=== PATIENT | female | born 1950 | race Caucasian/White ===

== ENCOUNTER 2023-09-14 11:50 | Emergency (ER) | payer OTHER, MEDICARE ==
[~2023-09-14] VITALS: Ht 160 cm; Wt 48.1 kg
[2023-09-14] MEDS ORDERED: LORAZEPAM 2 MG/1 ML VIAL ONE (12:25)
[2023-09-14] MEDS ORDERED: LORAZEPAM 2 MG/1 ML VIAL IV ONE (12:30)
[2023-09-14] MEDS ORDERED: IV NORMAL SALINE 500 ML BAG IV ONE (12:30)
[2023-09-14 12:35] LABS: BASOPHILS % (AUTO) 0.3 % (0.0-2.0); EOSINOPHILS % (AUTO) 0.1 % (0.0-7.0); HEMOGLOBIN 13.3 g/dL (10.9-14.3); LYMPHOCYTES # (AUTO) 1.5 K/uL (0.8-4.8); MEAN CORPUSCULAR HEMOGLOBIN 30.9 uug (24.7-32.8); MEAN CORPUSCULAR HGB CONC 33 g/dL (32.3-35.6); MEAN CORPUSCULAR VOLUME 93.5 fL (75.5-95.3); MONOCYTES # (AUTO) 0.5 K/uL (0.1-1.30); MONOCYTES % (AUTO) 5.9 % (0.0-11.0); NEUTROPHILS % (AUTO) 74.7 % (38.5-71.5); PLATELET COUNT (AUTO) 251 K/uL (179-408); RED BLOOD CELL COUNT(AUTO) 4.28 MIL/uL (3.63-4.92); RED CELL DISTRIBUTION WIDTH 13.4 % (12.3-17.7)
[2023-09-14 12:36] LABS: DIFFERENTIAL COMMENT 1
[2023-09-14 12:47] LABS: CALCIUM 9.1 mg/dL (8.5-10.1); CREATININE 0.8 mg/dL (0.6-1.3); POTASSIUM 3.5 mmol/L (3.5-5.1)
[2023-09-14] MEDS ORDERED: ACETYLCYSTEINE 20% 800 MG/4 ML VIAL NEB ONE (15:15)
[2023-09-14] MEDS ORDERED: ACETYLCYSTEINE 20% 800 MG/4 ML VIAL ONE (15:19)
[2023-09-14 15:25] VITALS: O2SAT 98
[2023-09-14] MEDS ORDERED: ALBUTEROL SULFATE 1.25 MG/3 ML NEBU ONE (15:26)
[2023-09-14] MEDS ORDERED: DEXAMETHASONE SOD PHOSPHATE 4 MG INJ ONE (15:29)
[2023-09-14] MEDS ORDERED: AZITHROMYCIN 300 MG/15 ML BOTTLE ONE ×2 (15:29→15:52)
[2023-09-14] MEDS ORDERED: AZITHROMYCIN 200 MG/5 ML 15 ML PO ONE (15:30)
[2023-09-14] MEDS ORDERED: DEXAMETHASONE SOD PHOSPHATE 4 MG INJ IV ONE (15:30)
[2023-09-14 15:45] VITALS: O2SAT 100
[2023-09-14] MEDS ORDERED: AZIT250T13 PO (16:17)
[2023-09-14] MEDS ORDERED: AZIT200S40 PO (16:22)
[2023-09-14 17:19] VITALS: BP 109/67; TEMP 97.9; O2SAT 100
== END 2023-09-14 17:20 | disposition home or self-care (01) ==
LOC: ER 11:50
DX: J06.9 Acute upper respiratory infection, unspecified (principal); R06.02 Shortness of breath; Z88.0 Allergy status to penicillin; Z79.2 Long term (current) use of antibiotics
CPT/HCPCS: 36415; 70490; 71250; 85025; A4606; A4663; J1100; J2060; Q0144

== ENCOUNTER 2025-01-26 11:34 | Emergency (ER) | payer MEDICARE, OTHER ==
[~2025-01-26] VITALS: Ht 160 cm; Wt 48.1 kg
[~2025-01-26 11:34] MED LIST: AZIT200S40 PO
[2025-01-26] MEDS ORDERED: AMLODIPINE 5 MG TABLET ONE (12:17)
[2025-01-26] MEDS ORDERED: METOPROLOL TARTRATE 50 MG TABLET ONE (12:17)
[2025-01-26] MEDS: IPRATROPIUM BROMIDE 0.5 MG/2.5 ML NEBU NEB ONE (12:18)
[2025-01-26] MEDS: ALBUTEROL SULFATE 2.5 MG/3 ML NEBU NEB ONE (12:19)
[2025-01-26 12:20] VITALS: O2SAT 97
[2025-01-26] MEDS: AMLODIPINE 5 MG TABLET PO ONE (12:22)
[2025-01-26] MEDS ORDERED: ALBUTEROL SULFATE 2.5 MG/ 0.5 ML NEBU ONE (12:22)
[2025-01-26] MEDS ORDERED: IPRATROPIUM BROMIDE 0.5 MG/2.5 ML NEBU ONE (12:22)
[2025-01-26] MEDS: METOPROLOL SUCCINATE XL 50 MG TAB.SR.24H PO ONE (12:22)
[2025-01-26 12:27] LABS: BASOPHILS % (AUTO) 0.6 % (0.0-2.0); DIFFERENTIAL COMMENT 0; HEMATOCRIT 33.4 % (31.2-41.9); HEMOGLOBIN 11.3 g/dL (10.9-14.3); LYMPHOCYTES # (AUTO) 1.8 K/uL (0.8-4.8); LYMPHOCYTES % (AUTO) 49.2 % (20.5-51.5); MEAN CORPUSCULAR HEMOGLOBIN 31.2 uug (24.7-32.8); MEAN CORPUSCULAR HGB CONC 34 g/dL (32.3-35.6); MEAN CORPUSCULAR VOLUME 91.8 fL (75.5-95.3); MONOCYTES # (AUTO) 0.2 K/uL (0.1-1.30); NEUTROPHILS # (AUTO) 1.5 K/uL (1.8-8.9); NEUTROPHILS % (AUTO) 42.2 % (38.5-71.5); PLATELET COUNT (AUTO) 196 K/uL (179-408); RED BLOOD CELL COUNT(AUTO) 3.63 MIL/uL (3.63-4.92); WHITE BLOOD COUNT (AUTO) 3.6 K/uL (3.8-11.8)
[2025-01-26 12:30] VITALS: O2SAT 100; O2SAT 97
[2025-01-26 12:34] LABS: CALCIUM 9.2 mg/dL (8.5-10.1); CARBON DIOXIDE 26 mmol/L (21-32); CHLORIDE 108 mmol/L (98-107); CREATININE 0.8 mg/dL (0.6-1.3); GLUCOSE 96 mg/dL (74-106); POTASSIUM 3.6 mmol/L (3.5-5.1); SODIUM SERUM 144 mmol/L (136-145); UREA NITROGEN, BLOOD 20 mg/dL (7-18)
[2025-01-26 13:24] LABS: ALBUMIN 3.9 g/dL (3.4-5.0); BILIRUBIN,DIRECT 0.2 mg/dL (0.0-0.2); BILIRUBIN,TOTAL 0.8 mg/dL (0.2-1.0); TOTAL PROTEIN, SERUM 7.5 g/dL (6.4-8.2)
[2025-01-26] MEDS ORDERED: ALBU8.5H8 INH (14:34)
[2025-01-26] MEDS ORDERED: PRED50TA PO (14:34)
[2025-01-26 14:43] VITALS: BP 144/83; O2SAT 95
== END 2025-01-26 14:44 | disposition home or self-care (01) ==
LOC: ER 11:34
DX: J45.909 Unspecified asthma, uncomplicated (principal); E78.5 Hyperlipidemia, unspecified; F41.9 Anxiety disorder, unspecified; I10 Essential (primary) hypertension; R07.9 Chest pain, unspecified; Z79.52 Long term (current) use of systemic steroids; Z88.0 Allergy status to penicillin
CPT/HCPCS: 36415; 71045; 84484; 85025; 85730; A4606; A4663; J3590

== ENCOUNTER 2025-03-19 13:53 | Emergency (ER) | payer OTHER, MEDICARE ==
[~2025-03-19] VITALS: Ht 162.6 cm; Wt 45.4 kg
[~2025-03-19 13:53] MED LIST changes: +ALBU8.5H8 INH; +PRED50TA PO
[2025-03-19] MEDS ORDERED: AMLO-212 PO (14:44)
[2025-03-19] MEDS ORDERED: METO-356 PO (14:44)
[2025-03-19 15:14] LABS: BASOPHILS % (AUTO) 0.7 % (0.0-2.0); EOSINOPHILS % (AUTO) 0.9 % (0.0-7.0); HEMATOCRIT 39.8 % (31.2-41.9); HEMOGLOBIN 13.2 g/dL (10.9-14.3); LYMPHOCYTES # (AUTO) 2.1 K/uL (0.8-4.8); LYMPHOCYTES % (AUTO) 44.6 % (20.5-51.5); MEAN CORPUSCULAR HEMOGLOBIN 30.8 uug (24.7-32.8); MEAN CORPUSCULAR HGB CONC 33 g/dL (32.3-35.6); MEAN CORPUSCULAR VOLUME 92.9 fL (75.5-95.3); MONOCYTES # (AUTO) 0.3 K/uL (0.1-1.30); NEUTROPHILS # (AUTO) 2.2 K/uL (1.8-8.9); NEUTROPHILS % (AUTO) 46.8 % (38.5-71.5); PLATELET COUNT (AUTO) 245 K/uL (179-408); RED BLOOD CELL COUNT(AUTO) 4.29 MIL/uL (3.63-4.92); RED CELL DISTRIBUTION WIDTH 13.4 % (12.3-17.7); WHITE BLOOD COUNT (AUTO) 4.7 K/uL (3.8-11.8)
[2025-03-19 15:18] LABS: DIFFERENTIAL COMMENT 1
[2025-03-19 15:22] LABS: CALCIUM 9.2 mg/dL (8.5-10.1); CARBON DIOXIDE 25 mmol/L (21-32); CHLORIDE 106 mmol/L (98-107); CREATININE 0.8 mg/dL (0.6-1.3); GLUCOSE 97 mg/dL (74-106); POTASSIUM 3.5 mmol/L (3.5-5.1); SODIUM SERUM 146 mmol/L (136-145); UREA NITROGEN, BLOOD 15 mg/dL (7-18)
[2025-03-19] MEDS: LORAZEPAM 2 MG/1 ML VIAL IV ONE (15:28)
[2025-03-19 15:34] LABS: ALANINE AMINOTRANSFERASE 18 U/L (14-59); ALBUMIN 3.8 g/dL (3.4-5.0); ALKALINE PHOSPHATASE 76 U/L (50-136); ASPARTATE AMINOTRANSFERASE 17 U/L (15-37); BILIRUBIN,DIRECT 0.2 mg/dL (0.0-0.2); BILIRUBIN,TOTAL 0.8 mg/dL (0.2-1.0); NT-PRO BNP 298 pg/mL (0-125); TOTAL PROTEIN, SERUM 7.3 g/dL (6.4-8.2)
[2025-03-19] MEDS ORDERED: LORA0.5T48 PO (16:12)
[2025-03-19] MEDS ORDERED: METOPROLOL SUCCINATE XL 25 MG TAB.SR.24H PO ONE (16:20)
[2025-03-19] MEDS: METOPROLOL SUCCINATE XL 25 MG TAB.SR.24H PO ONE (16:24)
[2025-03-19 16:40] VITALS: BP 159/81; O2SAT 97
== END 2025-03-19 16:41 | disposition home or self-care (01) ==
LOC: ER 13:56
DX: R00.2 Palpitations (principal); R06.00 Dyspnea, unspecified; R07.9 Chest pain, unspecified; R11.0 Nausea; I10 Essential (primary) hypertension; K21.9 Gastro-esophageal reflux disease without esophagitis; F41.9 Anxiety disorder, unspecified; Z79.52 Long term (current) use of systemic steroids; Z79.899 Other long term (current) drug therapy; Z88.0 Allergy status to penicillin
CPT/HCPCS: 36415; 71045; 83735; 84484; 85025; 85730; A4606; A4663